=== PATIENT | male | born 1960 | race Caucasian/White ===

== ENCOUNTER 2017-01-14 14:17 | Inpatient (IN) | payer BC ==
[~2017-01-14] VITALS: Ht 170.2 cm; Wt 78.2 kg
--- NOTE | ~2017-01-14 | PROC NOTE ---
[place], [place] PROCEDURE NOTE NAME: [id number] UNIT #: [id number] ROOM: 402 DOCTOR: JUSTIN ALEXIS MD BIRTHDATE: [birth year] DOS: 01/15/2017 PREOPERATIVE DIAGNOSIS: Suprapubic abscess. POSTOPERATIVE DIAGNOSIS: Suprapubic abscess. PROCEDURE: Incision and drainage of suprapubic abscess. SURGEON: Justin Alexis M.D. COMPLAINT SUPERVISOR: None. ANESTHESIA: MAC. INDICATIONS: This is a 56-year-old gentleman with a history of inadequately drained suprapubic abscess, who is here for a formal incision and drainage. The procedure and its complications were explained to the patient in detail preoperatively. Complications that were discussed included, but were not limited to bleeding, infection, recurrence, and prolonged pain. He agreed to proceed. DESCRIPTION OF PROCEDURE: After identifying the patient, the patient was brought to the operating suite and laid in the supine position. After IV sedation was administered by the anesthesia team, a timeout procedure was called and the parts were then painted and draped in the usual sterile fashion. The previously placed pack was removed and local anesthesia was infiltrated in the skin in both directions of the previous incision and drainage site. The abscess cavity was entered by incising the skin and a specimen of pus was sent for culture and sensitivity. Thereafter, saline was used for irrigation and the abscess cavity was packed with the help of an iodoform pack (half inch). A dressing was placed. The patient tolerated the procedure well and was taken to the recovery room in stable fashion. There were no complications. Dr. Justin Alexis, the attending surgeon, was present throughout the operating case. Justin Alexis MD CM:PROCNOTE:PROCEDURE NOTE [id number] JUSTIN ALEXIS MD
[~2017-01-14 14:17] MED LIST: CEFADROXIL500 M1 PO; EES400 MG PO; HYDR12.5C PO; HYDROCODONE BIT1 T11 PO; LISINOPRIL40 MG PO; NEXIUM40 MG PO; NORVASC10 MG PO
[2017-01-14 15:15] LABS: BASO % 0.2 % (0.0-1.0); EOS # 0.1 10*3/uL (0.0-0.4); EOS % 1.1 % (1.0-4.0); HEMATOCRIT 25.9 % (42.0-52.0); HEMOGLOBIN 8.4 g/dl (14.0-18.0); IG # 0.1 10*3/uL (0.0-0.1); LYMPH % 7.6 % (27.0-41.0); MEAN CORPUSCULAR HGB 33.7 pg (27.0-31.0); MEAN CORPUSCULAR HGB CONC 32.4 g/dl (33.0-37.0); MEAN PLATELET VOLUME 9.1 fl (9.6-12.3); MONO # 0.6 10*3/uL (0.1-1.0); MONO % 4.7 % (3.0-9.0); NEUT # 10.8 10*3/uL (2.3-7.9); NEUT % 85.5 % (47.0-73.0); PLATELET COUNT AUTOMATED 275 10*3/uL (130-400); RED BLOOD COUNT 2.49 10*6/uL (4.50-5.90); RED CELL DISTRI WIDTH 14.1 % (0-14.5); WHITE BLOOD COUNT 12.7 10*3/uL (4.8-10.8)
[2017-01-14 15:29] LABS: ALBUMIN 3.1 gm/dl (3.1-4.5); BILIRUBIN, TOTAL 0.2 mg/dl (0.2-1.0); POTASSIUM 3.6 mmol/L (3.5-5.1); TOTAL PROTEIN 8.9 gm/dL (6.4-8.2)
[2017-01-14 15:43] LABS: C-REACTIVE PROTEIN 43.6 MG/DL (0-0.3)
[2017-01-14] MEDS ORDERED: CEFADROXIL1 G1 PO (21:38)
[2017-01-15 07:24] LABS: BASO % 0.4 % (0.0-1.0); EOS # 0.2 10*3/uL (0.0-0.4); EOS % 1.8 % (1.0-4.0); HEMATOCRIT 24.2 % (42.0-52.0); HEMOGLOBIN 7.8 g/dl (14.0-18.0); IG # 0.1 10*3/uL (0.0-0.1); LYMPH # 1.1 10*3/uL (1.3-4.4); MEAN CELL VOLUME 104.8 fl (80.0-94.0); MEAN CORPUSCULAR HGB 33.8 pg (27.0-31.0); MEAN CORPUSCULAR HGB CONC 32.2 g/dl (33.0-37.0); MEAN PLATELET VOLUME 8.9 fl (9.6-12.3); MONO # 0.4 10*3/uL (0.1-1.0); NEUT # 8.9 10*3/uL (2.3-7.9); PLATELET COUNT AUTOMATED 306 10*3/uL (130-400); RED BLOOD COUNT 2.31 10*6/uL (4.50-5.90); RED CELL DISTRI WIDTH 14.3 % (0-14.5); WHITE BLOOD COUNT 10.7 10*3/uL (4.8-10.8)
[2017-01-15 07:36] LABS: HEMOGLOBIN A1c 4.9 % (4.8-5.6)
[2017-01-15 07:50] LABS: ALBUMIN 2.8 gm/dl (3.1-4.5); BILIRUBIN, TOTAL 0.2 mg/dl (0.2-1.0); POTASSIUM 3.7 mmol/L (3.5-5.1); TOTAL PROTEIN 8.5 gm/dL (6.4-8.2)
[2017-01-15 08:10] LABS: FOLIC ACID 9.03 ng/mL (>5.38)
[2017-01-15 08:20] LABS: PROTHROMBIN TIME 10.3 SECONDS (9.0-12.4)
[2017-01-16 06:14] LABS: HEMATOCRIT 23.7 % (42.0-52.0); HEMOGLOBIN 7.5 g/dl (14.0-18.0); MEAN CELL VOLUME 106.8 fl (80.0-94.0); MEAN CORPUSCULAR HGB 33.8 pg (27.0-31.0); MEAN CORPUSCULAR HGB CONC 31.6 g/dl (33.0-37.0); MEAN PLATELET VOLUME 9.4 fl (9.6-12.3); NUCLEATED RED BLOOD CELL 0.2 % (0.0-0.0); PLATELET COUNT AUTOMATED 329 10*3/uL (130-400); RED BLOOD COUNT 2.22 10*6/uL (4.50-5.90); RED CELL DISTRI WIDTH 14.4 % (0-14.5); WHITE BLOOD COUNT 9.3 10*3/uL (4.8-10.8)
[2017-01-16 06:38] LABS: ALBUMIN 2.8 gm/dl (3.1-4.5); BILIRUBIN, TOTAL 0.2 mg/dl (0.2-1.0); POTASSIUM 3.3 mmol/L (3.5-5.1)
[2017-01-16 06:48] LABS: EOSINOPHIL # 0.3 10*3/uL (0-0.4); EOSINOPHILS 3 % (1-4); LYMPHOCYTE # 1.5 10*3/uL (1.3-4.4); MONOCYTE # 0.3 10*3/uL (0.1-1.0); NEUTROPHIL # 7.3 10*3/uL (2.3-7.9); NEUTROPHILS 78 % (47-73); ROULEAUX MODERATE; TOTAL CELLS COUNTED 100 #CELLS
[2017-01-16 06:49] LABS: PLATELET SUFFICIENCY NORMAL (NORMAL)
[2017-01-17 06:16] LABS: BASO % 0.4 % (0.0-1.0); EOS # 0.3 10*3/uL (0.0-0.4); EOS % 3.1 % (1.0-4.0); HEMATOCRIT 27.7 % (42.0-52.0); HEMOGLOBIN 8.8 g/dl (14.0-18.0); IG # 0.1 10*3/uL (0.0-0.1); LYMPH # 1.4 10*3/uL (1.3-4.4); LYMPH % 16.4 % (27.0-41.0); MEAN CORPUSCULAR HGB 32.7 pg (27.0-31.0); MEAN CORPUSCULAR HGB CONC 31.8 g/dl (33.0-37.0); MEAN PLATELET VOLUME 9.1 fl (9.6-12.3); MONO # 0.5 10*3/uL (0.1-1.0); MONO % 5.5 % (3.0-9.0); NEUT # 6.2 10*3/uL (2.3-7.9); NEUT % 73.3 % (47.0-73.0); PLATELET COUNT AUTOMATED 332 10*3/uL (130-400); RED BLOOD COUNT 2.69 10*6/uL (4.50-5.90); RED CELL DISTRI WIDTH 15.9 % (0-14.5); WHITE BLOOD COUNT 8.4 10*3/uL (4.8-10.8)
[2017-01-17 06:38] LABS: ALBUMIN 2.8 gm/dl (3.1-4.5); BILIRUBIN, TOTAL 0.2 mg/dl (0.2-1.0); POTASSIUM 3.3 mmol/L (3.5-5.1)
[2017-01-17] MEDS ORDERED: BACTRIM DS 8001 TA1 PO (11:27)
[2017-01-17] MEDS ORDERED: DOXYCYCLINE100 M3 PO (11:39)
== END 2017-01-17 13:56 | disposition home health service (06) | DRG 871 ==
LOC: ED 14:17 → 4E 19:18 → EDHOLD 19:18 → 4E 19:48
PROVIDERS: Family Medicine; Internal Medicine; Physician Assistant
PROC: 0J9C0ZX Drainage of Pelvic Region Subcutaneous Tissue and Fascia, Open Approach, Diagnostic (ICD-10-PCS; principal; 2017-01-15)
DX: A41.9 Sepsis, unspecified organism (principal); N17.0 Acute kidney failure with tubular necrosis; E44.0 Moderate protein-calorie malnutrition; E87.0 Hyperosmolality and hypernatremia; L02.211 Cutaneous abscess of abdominal wall; R73.9 Hyperglycemia, unspecified; D63.8 Anemia in other chronic diseases classified elsewhere; D53.9 Nutritional anemia, unspecified; E87.6 Hypokalemia; R65.20 Severe sepsis without septic shock; B95.8 Unspecified staphylococcus as the cause of diseases classified elsewhere; N18.3 Chronic kidney disease, stage 3 (moderate); I12.9 Hypertensive chronic kidney disease with stage 1 through stage 4 chronic kidney disease, or unspecified chronic kidney disease; K21.9 Gastro-esophageal reflux disease without esophagitis; Z84.1 Family history of disorders of kidney and ureter; Z83.3 Family history of diabetes mellitus; Z82.49 Family history of ischemic heart disease and other diseases of the circulatory system; Z84.89 Family history of other specified conditions; Z79.1 Long term (current) use of non-steroidal anti-inflammatories (NSAID); Z79.899 Other long term (current) drug therapy; Z68.26 Body mass index [BMI] 26.0-26.9, adult

== ENCOUNTER 2017-04-05 18:24 | Inpatient (IN) | payer BC ==
[~2017-04-05] VITALS: Ht 170.2 cm; Wt 77.2 kg
--- NOTE | ~2017-04-05 | PR ---
[place], [place] PROGRESS NOTE NAME: MALOU PASCUAL UNIT #: [id number] ROOM: 402 DOCTOR: OMEGA CLARK,KRISTINE Rodriguez BIRTHDATE: [birth year] DOS: 04/08/2017 ADDENDUM I agree with the above case as described, make adjustments accordingly. This is an addendum to the Infectious Disease on 04/[address] Susan Bishop. KRISTINE DUFF MD CM:PNTRANS [id number] KRISTINE DUFF MD 04/11/17217 interface
--- NOTE | ~2017-04-05 | PR ---
[place], [place] PROGRESS NOTE NAME: MALOU PASCUAL [facility] #: [id number] UNIT #: [id number] ROOM: 402 DOCTOR: RAMU DAVISJANUARY BIRTHDATE: [birth year] DOS: 04/08/2017 SUBJECTIVE: The patient is being followed for a right forearm abscess. He is status post further I and D by Dr. Dunham today. He is doing well. Denies any fevers, chills, nausea, vomiting or diarrhea. No cough or shortness of breath. No rash or itch. PHYSICAL EXAMINATION: VITAL SIGNS: Show temperature 98.2, pulse 81, respirations 20, BP 136/75. GENERAL: Alert and oriented, 56-year-old male, in no acute distress. HEAD, EYES, EARS, NOSE AND THROAT: Normocephalic. No thrush. LUNGS: Clear to auscultation bilaterally. Respirations even and unlabored. HEART: Regular rhythm. No murmur appreciated. ABDOMEN: Soft, nontender. EXTREMITIES: Lower extremities: No edema. Right upper extremity: Decreased edema and erythema. His right arm is wrapped status post I and D, but the proximal arm erythema and swelling has significantly improved. LABORATORY DATA: Show WBCs 9.6, platelets 233. BUN 24, creatinine 2.36. LFTs within normal limits. Wound culture with gram-positive cocci. Blood cultures are negative. ASSESSMENT: Right arm abscess likely MSSA versus MRSA. He is likely a carrier. He has been having recurrent abscesses, especially in the suprapubic and groin area. PLAN: At this point, we went over again decolonization protocol. From my standpoint, he should be fine to be discharged with doxycycline 100 mg twice a day tomorrow. Continue the Bactroban to his nares for decolonization and also advised that he can use it as needed if any new areas seem to be developing. I also instructed him regarding photosensitivity, side effect of doxycycline as well as avoiding calcium intake for an hour before or an hour after taking the doxycycline and to take with food if he has issues with nausea. Contact information was given, but he can be seen in followup p.r.n. BHAVANA GUALLPA CNP [place], [place] PROGRESS NOTE NAME: MALOU PASCUAL UNIT #: [id number] ROOM: 402 DOCTOR: RAMU DAVISJANUARY BIRTHDATE: [birth year] KRISTINE DUFF MD CM:PNTRANS [id number] BHAVANA GUALLPA CNP 04/11/17 1247 interface
--- NOTE | ~2017-04-05 | CON ---
[place], [place] REPORT OF CONSULTATION NAME: MALOU PASCUAL UNIT #: [id number] ROOM: 402 DOCTOR: OMEGA CLARK,KRISTINE Rodriguez BIRTHDATE: [birth year] DOS: 04/07/2017 ADDENDUM I agree with above plans after reviewing the chart, labs and radiographs. We will follow the patient clinically and adjust accordingly. KRISTINE DUFF MD CM:CONSTR:REPORT OF CONSULTATION 14 04/07/17 2249 interface
--- NOTE | ~2017-04-05 | CON ---
[place], [place] REPORT OF CONSULTATION NAME: MALOU PASCUAL UNIT #: [id number] ROOM: 402 DOCTOR: RAMU DAVIS,JANUARY BIRTHDATE: [birth year] DOS: 04/07/2017 HISTORY OF PRESENT ILLNESS: The patient is a 56-year-old male who is admitted day before yesterday on Tuesday. It began with right arm swelling and redness and pain. He had a small area that looked like an ingrown hair. He did attempt to squeeze it. The area worsened. On Tuesday, he attempted to squeeze it again. He was unable to get anything out of it. The area continued to worsen with swelling, pain and redness. He also developed chills. He came to the hospital and was admitted. There was an attempt at I and D in the ER. There are no cultures in the system. He was admitted and placed on vancomycin and Zosyn. ID was consulted for right arm abscess and cellulitis. Cultures were only just today obtained from the arm. It was seen by Dr. Alexis, who did not feel at this point that there was enough to I and D. He had a CT of the arm, which did not demonstrate drainable abscess that was done yesterday. He has had no documented fever. Blood cultures were obtained on admission, which are sterile. He has not had a MRSA screen. According to the chart, he had a groin abscess that was I and D'd back in December. I did locate 01/15/2017 cultures which grew MSSA from the groin. He has had issues with recurrent abscesses in the suprapubic area. PAST MEDICAL HISTORY: As above as well as anemia, chronic kidney disease, essential hypertension, GERD, malnutrition, hernia repair. SOCIAL HISTORY: Lifelong nonsmoker, only drinks occasionally, has not had any alcohol since . No illicit drug use. Denies any IV drug use. FAMILY MEDICAL HISTORY: Significant for father with diabetes and renal failure and mother with multiple myeloma and pulmonary hypertension. ALLERGIES: No known drug allergies. CURRENT MEDICATIONS: Include vancomycin, Feosol, Norvasc, Protonix, Zosyn, Restoril, Zofran, milk of magnesia, Rosepine, Tylenol. LABORATORY DATA: Cultures as reviewed above. WBC is 10.0, platelets 213, WBCs elevated are now down to normal. Creatinine was 2.75 yesterday and down to 2.53 today. REVIEW OF SYSTEMS: As above in history of present illness. Chills have resolved. No fever. No nausea, vomiting or diarrhea. No rash or itch. No cough or shortness of breath. No headache or dizziness. No chest pain or palpitations. Again, has swelling, pain and redness of the right arm. It has improved somewhat. No cough or shortness of breath. No dysuria or frequency. Further review of systems is unremarkable. PHYSICAL EXAMINATION: VITAL SIGNS: Show temperature of 97.7, pulse 74, respirations 18, BP 119/69. GENERAL: A 56-year-old male in no acute distress. HEAD, EYES, EARS, NOSE AND THROAT: Normocephalic. Edentulous. No thrush. NECK: Supple. No cervical lymphadenopathy. [place], [place] REPORT OF CONSULTATION NAME: MALOU PASCUAL UNIT #: [id number] ROOM: 402 DOCTOR: RAMU DAVIS,JANUARY BIRTHDATE: [birth year] LUNGS: Clear to auscultation bilaterally. Respirations even and unlabored. HEART: Regular rhythm. No murmur appreciated. ABDOMEN: Soft, positive bowel sounds, nondistended, nontender. EXTREMITIES: Lower extremities unremarkable. No edema, deformity or cyanosis. Right upper extremity with erythema over the forearm and upper arm with abscess on the right forearm with significant purulence expressed, not much tenderness. He has swelling, erythema and increased warmth. In the suprapubic area, he has multiple areas where it appears that he has had abscesses that have resolved and scarred and is otherwise warm, dry and free of rashes. ASSESSMENT AND PLAN: Right forearm abscess, MSSA versus MRSA. He did have MSSA in December making that the more likely culprit. 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 I discussed with him decolonization protocol. We are going to get him started with Hibiclens bath and Bactroban to the nares. I discussed with him the pathogenesis of Staph aureus and again decolonization here at the hospital as well as at home including Bactroban 3 times a day for 1 week out of each month for 3 months as well as liquid antibacterial soap for his showers, daily showers, not re-wearing any of his clothes, changing out his razor, discarding or sterilizing any nose clippers, not re-wearing any of his clothes. No loofahs, bath brushes or sponges. Changing bed linen twice a week, etc. He was also given a written patient information. We will stop the Zosyn, continue the vancomycin and switch him over to oral antibiotics in the next day or so, most likely with doxycycline. Follow up on the cultures. Dr. Alexis is to see him again tomorrow and determine if he needs further I and D which I suspect he may. BHAVANA SUSAN GUALLPA KRISTINE DUFF MD CM:CONSTR:REPORT OF CONSULTATION 1701 04/08/17 0628 interface
[~2017-04-05 18:24] MED LIST changes: +BACTRIM DS 8001 TA1 PO; +CEFADROXIL1 G1 PO; +DOXYCYCLINE100 M3 PO
[2017-04-05 18:27] VITALS: BP 158/84
[2017-04-05] MEDS ORDERED: FERROUS SULFAT325 MG PO (18:28)
[2017-04-05 20:00] VITALS: BP 150/72
[2017-04-05 20:00] LABS: BASO % 0.3 % (0.0-1.0); EOS # 0.1 10*3/uL (0.0-0.4); HEMATOCRIT 23.9 % (42.0-52.0); HEMOGLOBIN 7.8 g/dl (14.0-18.0); IG # 0.1 10*3/uL (0.0-0.1); LYMPH # 0.9 10*3/uL (1.3-4.4); LYMPH % 6.2 % (27.0-41.0); MEAN CELL VOLUME 102.6 fl (80.0-94.0); MEAN CORPUSCULAR HGB 33.5 pg (27.0-31.0); MEAN CORPUSCULAR HGB CONC 32.6 g/dl (33.0-37.0); MEAN PLATELET VOLUME 8.7 fl (9.6-12.3); MONO # 0.6 10*3/uL (0.1-1.0); NEUT # 12.1 10*3/uL (2.3-7.9); NEUT % 87.8 % (47.0-73.0); PLATELET COUNT AUTOMATED 236 10*3/uL (130-400); RED BLOOD COUNT 2.33 10*6/uL (4.50-5.90); RED CELL DISTRI WIDTH 15.1 % (0-14.5); WHITE BLOOD COUNT 13.8 10*3/uL (4.8-10.8)
[2017-04-05 20:17] LABS: ALBUMIN 3.5 gm/dl (3.1-4.5); BILIRUBIN, TOTAL 0.2 mg/dl (0.2-1.0); POTASSIUM 3.2 mmol/L (3.5-5.1); TOTAL PROTEIN 8.5 gm/dL (6.4-8.2)
[2017-04-05 21:00] VITALS: BP 152/76
[2017-04-05 22:00] VITALS: BP 150/76
[2017-04-05 23:00] VITALS: BP 151/71
[2017-04-06] VITALS (11 sets, daily range): BP systolic 117–143; BP diastolic 57–72
[2017-04-06 06:15] LABS: BASO % 0.3 % (0.0-1.0); EOS # 0.1 10*3/uL (0.0-0.4); HEMATOCRIT 20.8 % (42.0-52.0); HEMOGLOBIN 6.8 g/dl (14.0-18.0); IG # 0.1 10*3/uL (0.0-0.1); LYMPH # 1.3 10*3/uL (1.3-4.4); LYMPH % 11.1 % (27.0-41.0); MEAN CELL VOLUME 103.5 fl (80.0-94.0); MEAN CORPUSCULAR HGB 33.8 pg (27.0-31.0); MEAN CORPUSCULAR HGB CONC 32.7 g/dl (33.0-37.0); MEAN PLATELET VOLUME 9.2 fl (9.6-12.3); MONO # 0.5 10*3/uL (0.1-1.0); MONO % 4.2 % (3.0-9.0); NEUT # 9.6 10*3/uL (2.3-7.9); NEUT % 82.6 % (47.0-73.0); PLATELET COUNT AUTOMATED 210 10*3/uL (130-400); RED BLOOD COUNT 2.01 10*6/uL (4.50-5.90); RED CELL DISTRI WIDTH 14.8 % (0-14.5); WHITE BLOOD COUNT 11.6 10*3/uL (4.8-10.8)
[2017-04-06 06:40] LABS: FREE T4 0.99 ng/dl (0.76-1.46); POTASSIUM 3.1 mmol/L (3.5-5.1)
[2017-04-06 06:45] LABS: THYROID STIM HORMONE (HS) 0.072 uIU/ml (0.358-4.75)
[2017-04-06 08:05] LABS: FOLIC ACID 6.11 ng/mL (>5.38)
[2017-04-07] VITALS: BP 121/66
[2017-04-07 06:10] LABS: BASO % 0.4 % (0.0-1.0); EOS # 0.2 10*3/uL (0.0-0.4); EOS % 2.2 % (1.0-4.0); HEMATOCRIT 25.7 % (42.0-52.0); HEMOGLOBIN 8.3 g/dl (14.0-18.0); IG # 0.1 10*3/uL (0.0-0.1); LYMPH # 1.4 10*3/uL (1.3-4.4); LYMPH % 14.2 % (27.0-41.0); MEAN CELL VOLUME 101.2 fl (80.0-94.0); MEAN CORPUSCULAR HGB 32.7 pg (27.0-31.0); MEAN CORPUSCULAR HGB CONC 32.3 g/dl (33.0-37.0); MEAN PLATELET VOLUME 9.5 fl (9.6-12.3); MONO # 0.4 10*3/uL (0.1-1.0); MONO % 4.1 % (3.0-9.0); NEUT # 7.9 10*3/uL (2.3-7.9); NEUT % 78.6 % (47.0-73.0); PLATELET COUNT AUTOMATED 213 10*3/uL (130-400); RED BLOOD COUNT 2.54 10*6/uL (4.50-5.90); RED CELL DISTRI WIDTH 15.5 % (0-14.5)
[2017-04-07 06:30] LABS: POTASSIUM 3.2 mmol/L (3.5-5.1)
[2017-04-07 08:00] VITALS: BP 132/62
[2017-04-07 12:00] VITALS: BP 111/57
[2017-04-07 16:00] VITALS: BP 119/69
[2017-04-07 20:00] VITALS: BP 122/77
[2017-04-08] VITALS: BP 131/78
[2017-04-08 06:02] LABS: ALBUMIN 2.8 gm/dl (3.1-4.5); BILIRUBIN, TOTAL 0.3 mg/dl (0.2-1.0); POTASSIUM 3.2 mmol/L (3.5-5.1); TOTAL PROTEIN 7.6 gm/dL (6.4-8.2)
[2017-04-08 06:04] LABS: BASO # 0.1 10*3/uL (0.0-0.1); BASO % 0.5 % (0.0-1.0); EOS # 0.3 10*3/uL (0.0-0.4); EOS % 2.7 % (1.0-4.0); HEMATOCRIT 25.5 % (42.0-52.0); HEMOGLOBIN 8.4 g/dl (14.0-18.0); IG # 0.1 10*3/uL (0.0-0.1); LYMPH # 1.2 10*3/uL (1.3-4.4); LYMPH % 12.8 % (27.0-41.0); MEAN CELL VOLUME 101.6 fl (80.0-94.0); MEAN CORPUSCULAR HGB 33.5 pg (27.0-31.0); MEAN CORPUSCULAR HGB CONC 32.9 g/dl (33.0-37.0); MEAN PLATELET VOLUME 9.4 fl (9.6-12.3); MONO # 0.4 10*3/uL (0.1-1.0); MONO % 4.4 % (3.0-9.0); NEUT # 7.5 10*3/uL (2.3-7.9); NEUT % 78.8 % (47.0-73.0); PLATELET COUNT AUTOMATED 233 10*3/uL (130-400); RED BLOOD COUNT 2.51 10*6/uL (4.50-5.90); RED CELL DISTRI WIDTH 14.8 % (0-14.5); WHITE BLOOD COUNT 9.6 10*3/uL (4.8-10.8)
[2017-04-08 08:00] VITALS: BP 131/75
[2017-04-08 12:00] VITALS: BP 137/76
[2017-04-08 16:00] VITALS: BP 136/75
[2017-04-08 20:00] VITALS: BP 153/89
[2017-04-09] VITALS: BP 156/92
[2017-04-09 04:00] VITALS: BP 144/86
[2017-04-09 06:40] LABS: BASO % 0.3 % (0.0-1.0); EOS # 0.2 10*3/uL (0.0-0.4); EOS % 2.3 % (1.0-4.0); HEMATOCRIT 27.4 % (42.0-52.0); IG # 0.1 10*3/uL (0.0-0.1); LYMPH # 1.5 10*3/uL (1.3-4.4); LYMPH % 15.2 % (27.0-41.0); MEAN CELL VOLUME 99.6 fl (80.0-94.0); MEAN CORPUSCULAR HGB 32.7 pg (27.0-31.0); MEAN CORPUSCULAR HGB CONC 32.8 g/dl (33.0-37.0); MONO # 0.5 10*3/uL (0.1-1.0); MONO % 4.9 % (3.0-9.0); NEUT # 7.3 10*3/uL (2.3-7.9); NEUT % 76.7 % (47.0-73.0); PLATELET COUNT AUTOMATED 259 10*3/uL (130-400); RED BLOOD COUNT 2.75 10*6/uL (4.50-5.90); RED CELL DISTRI WIDTH 14.3 % (0-14.5); WHITE BLOOD COUNT 9.6 10*3/uL (4.8-10.8)
[2017-04-09 07:16] LABS: POTASSIUM 3.3 mmol/L (3.5-5.1)
[2017-04-09 08:00] VITALS: BP 149/83
[2017-04-09 12:00] VITALS: BP 138/93; BP 142/80
== END 2017-04-09 12:23 | disposition home or self-care (01) | DRG 871 ==
LOC: ED 18:24 → 4E 21:37 → EDHOLD 21:37 → 4E 21:54
PROVIDERS: Internal Medicine; Nurse Practitioner Family; Student in an Organized Health Care Education/Training Program
PROC: 0H9DXZZ Drainage of Right Lower Arm Skin, External Approach (ICD-10-PCS; principal; 2017-04-05)
PROC: 30233N1 Transfusion of Nonautologous Red Blood Cells into Peripheral Vein, Percutaneous Approach (ICD-10-PCS; 2017-04-06)
PROC: 0J9G3ZZ Drainage of Right Lower Arm Subcutaneous Tissue and Fascia, Percutaneous Approach (ICD-10-PCS; 2017-04-08)
DX: A41.9 Sepsis, unspecified organism (principal); N17.0 Acute kidney failure with tubular necrosis; L03.113 Cellulitis of right upper limb; L02.413 Cutaneous abscess of right upper limb; M60.031 Infective myositis, right forearm; D63.1 Anemia in chronic kidney disease; K21.9 Gastro-esophageal reflux disease without esophagitis; E87.6 Hypokalemia; I12.9 Hypertensive chronic kidney disease with stage 1 through stage 4 chronic kidney disease, or unspecified chronic kidney disease; N18.3 Chronic kidney disease, stage 3 (moderate); R65.20 Severe sepsis without septic shock; Z84.1 Family history of disorders of kidney and ureter; Z80.7 Family history of other malignant neoplasms of lymphoid, hematopoietic and related tissues; Z83.3 Family history of diabetes mellitus; Z82.49 Family history of ischemic heart disease and other diseases of the circulatory system; Z79.899 Other long term (current) drug therapy